=== PATIENT | male | born 1965 | race Two or more races ===

== ENCOUNTER → 2021-02-10 | Outpatient (CLI) | payer OTHER ==
--- NOTE | 2021-02-10 19:03 | RAD ---
EXAM: 3 Views Left Shoulder DATE: 02/10/2021 4:12 PM INDICATION: Reason: chronic pain / Spl. Instructions: / History: COMPARISON: No Prior FINDINGS: There is no evidence for acute fracture or dislocation. AC joint is congruent. Sclerotic focus left h umerus likely bone island. Humeral head is not high riding. IMPRESSION: 1. No acute fracture or dislocation. Electronically signed by: Garry Chaney MD (02/10/2021 7:01 PM) JACKELIN
== END ==
LOC: RAD 15:54
PROVIDERS: ATTEND Family Medicine
DX: M25.512 Pain in left shoulder (principal); G89.29 Other chronic pain
CPT/HCPCS: 73030